=== PATIENT | female | born 1955 | race Caucasian/White ===

== ENCOUNTER 2017-07-18 00:20 | Day surgery (SDC) | payer MEDICARE, MEDICAID ==
[2017-07-15 11:23] LABS: PLATELET COUNT, AUTOMATED 263 K/uL (150-450)
--- NOTE | 2017-07-15 12:00 | RADIOLOGY IMAGING REPORT ---
FACILITY: [facility] - [place] PATIENT NAME: Bozena Lowe : 1955 MR: [id number] V: [id number] EXAM DATE: ORDERING PHYSICIAN: MELISSA PEREZ TECHNOLOGIST: Location: [facility] [place] Patient: Bozena Lowe : 1955 Visit/Account:[id number] Date of Sevice: 07/15/2017 Exam type: CHEST PA AND LAT History: Preop Comparison: November 15, 2015. Findings: There is no evidence of focal infiltrates, pleural effusions or pulmonary edema. The cardiac silhoue tte is normal in size. There is a right paratracheal soft tissue fullness similar to the prior study which is likely related to patient's known coarctation of the aorta. There are moderate spondylotic changes of the thoracic spine IMPRESSION: 1. No evidence of acute pulmonary consolidation Paratracheal soft tissue fullness is likely related to patient's known coarctation of aorta and appea rs similar to the prior chest Report Dictated By: Modesta Rojas MD at 07/15/2017 11:53 AM Report E-Signed By: Modesta Rojas MD at 07/15/2017 11:57 AM WSN:[email or web address]
--- NOTE | 2017-07-15 12:49 | EKG ---
[place] [facility] [place] SIMON CROWDER : [id number] MR: [id number] V: [id number] EXAM DATE: ORDERING PHYSICIAN: MELISSA PEREZ TECHNOLOGIST: Sam Cao Reason : Blood Pressure : / mmHG Vent. Rate : 070 BPM Atrial Rate : 070 BPM P-R Int : 170 ms QRS Dur : 106 ms QT Int : 446 ms P-R-T Axes : 064 -31 050 degrees QTc Int : 481 ms Normal sinus rhythm with sinus arrhythmia Left axis deviation Incomplete right bundle branch block Septal infarct , age undetermined Abnormal ECG When compared with ECG of 11-DEC-2016 14:38, Incomplete right bundle branch block is now present Septal infarct is now present Confirmed by RENATO PORTER ([id number]) on 07/15/2017 2:58:14 PM Referred By: Confirmed By:RENATO PORTER
--- NOTE | 2017-07-17 18:20 | HISTORY AND PHYSICAL ---
DATE OF ADMISSION: July 18, 2017 CHIEF COMPLAINT Hematuria. HISTORY OF PRESENT ILLNESS Patient is a 62-year-old white female with history of mental retardation and seizure disorder who is an [facility] client who has been followed in the Urology Clinic for many years for urinary incontinence with occasional urinary tract infections. This past year she was noted to have increasing microscopic hematuria and a CT scan was performed for evaluation. In October of 2015, a scan was read as having a questionable left mid pole angiomyolipoma. 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 There was no blood flow in this area or significant change in size. She was taken to the operating room on January 31, 2017, at which time she underwent anesthetic cystoscopy with hydrodilation of her bladder as well as a left retrograde pyelogram. The pyelogram showed a normal left system except for a left mid pole caliceal diverticulum with delayed drainage. She did well immediately afterwards, however, two to three months later she experienced episodes of gross painless hematuria. Her urinalysis showed too numerous to count red blood cells. Urine culture showed some Staphylococcus epidermidis and she was treated with Macrodantin for this. She is now being brought to the operating room for planned right retrograde pyelogram, examination under anesthesia with possible left ureteroscopy to further evaluate her upper tracts. PAST MEDICAL HISTORY * Mental retardation. * Urinary incontinence. * Seizure disorder. * Sleep apnea. * Hematuria. PAST SURGICAL HISTORY * Cystoscopy with urethral dilation in 1984. * Colonoscopy with EGD in 2015. * Cystoscopy with left retrograde pyelogram on January 31, 2017. ALLERGIES No known drug allergies. CURRENT MEDICATIONS Please see medication list. SOCIAL HISTORY Patient lives at the [facility] facility. REVIEW OF SYSTEMS Patient denies chest pain, productive cough, fevers, chills, nausea, vomiting, change in weight, bleeding disorder or liver disease. PHYSICAL EXAMINATION GENERAL: Patient is a well-developed, well-nourished white female in no acute distress. HEENT: Reveals poor dentition. CHEST: Clear to auscultation. CARDIOVASCULAR: Regular rate and rhythm without murmurs. ABDOMEN: Soft, nontender. No masses are palpated. GENITOURINARY: Exam is deferred to the OR. EXTREMITIES: Exam without clubbing, cyanosis or edema. NEUROLOGIC: Exam is nonfocal. [*] IMPRESSION A 62-year-old white female with developmental delay and seizure disorder, noted to have an episode of gross hematuria. 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 PLAN We will perform anesthetic cystoscopy, right retrograde pyelogram with possible left ureteroscopy. MTDD
[~2017-07-18] VITALS: Ht 160 cm; Wt 71.7 kg
[~2017-07-18 00:20] MED LIST: ACET-2043 PO; AMOX-362 PO; BEPO10DR3 OU; BETA1TAB44 PO; CA C1TAB95 PO; CALC-1198 PO; CALC1TAB24 PO; CARB25DR2 OP; CARB25DR2 OU; CETI-260 PO; CHLO473M14 MM; CHLOROPHYLL PO; CHOL200021 PO; CITA-141 PO; DIA5 PO; DOCU-416 PO; FOLI-94 PO; GUAI-244 PO; IBUP-56 PO; LACT-214 PO; LOPE-84 PO; LORA-630 PO; LORA-941 PO; LORA10CA3 PO; MELA5TAB6 PO; MINE3.5O20 OU; NAPR220C11 PO; NEOM1PAC11 TP; OMEG-11 PO; OMEG-23 PO; OMEG1CAP35 PO; OXY5 PO; OXYB5TAB86 PO; OXYGENHOME INH; SULF-198 PO; THYM1TAB PO; VIT1CAPS34 PO; [UNRECOGNIZED DRUG - CODE] OP; [UNRECOGNIZED DRUG - CODE] PO; [UNRECOGNIZED DRUG - OTHER] PO; [UNRECOGNIZED DRUG - OTHER] PO
[2017-07-18] MEDS ORDERED: LIDOCAINE/SOD BICARB 8.4% SYR ID ONE (06:45)
[2017-07-18] MEDS ORDERED: ceFAZolin(*) 1 GM VIAL 1 GM in NS(*) 0.9% 100 ML ADDVANT BAG 100 ML IVPB ONE (06:45)
[2017-07-18] MEDS ORDERED: NORMOSOL R SOLN(*) 1000 ML BAG 1,000 ML IV PRN (06:45)
[2017-07-18] MEDS ORDERED: FAMOTIDINE 20 MG TAB PO ONE (06:45)
[2017-07-18] MEDS ORDERED: MIDAZOLAM 2 MG/2 ML VIAL IVP ONE (06:45)
[2017-07-18 06:57] VITALS: BP 127/68
[2017-07-18] MEDS ORDERED: PROPOFOL EMUL(*) 10MG/ML 20 ML 20 ML ONE (07:38)
[2017-07-18] MEDS ORDERED: LIDOCAINE MPF 1% 5 ML VIAL ONE (07:38)
[2017-07-18] MEDS ORDERED: IOPAMIDOL-200 50 ML VIAL IS ONE (07:47)
[2017-07-18] MEDS ORDERED: DEXAMETHASONE SOD PHOS 10MG/ML ONE (07:50)
[2017-07-18] MEDS ORDERED: ONDANSETRON 4 MG/2 ML VIAL ONE (07:50)
[2017-07-18] MEDS ORDERED: fentaNYL CITR 100 MCG/2 ML AMP ONE (08:10)
[2017-07-18] MEDS ORDERED: BELLADONNA ALK/OPIUM 60MG SUPP PR ONE (08:25)
[2017-07-18] MEDS ORDERED: HYDROCORTISONE 1% CR 28.35 GM TP ONE (08:25)
[2017-07-18] MEDS ORDERED: NS 0.9% 3000 ML IRRIGATION BAG IR ONE (08:36)
[2017-07-18] MEDS ORDERED: PHEN200T32 PO (09:50)
[2017-07-18 09:52] VITALS: BP 125/77
--- NOTE | 2017-07-18 10:11 | PIERCE CYSTOSCOPY ---
EVENT DATE: July 18, 2017 SURGEON: Tony Lew MD ANESTHESIOLOGIST: Len Montelongo MD ANESTHESIA: General PREOPERATIVE DIAGNOSIS Gross hematuria with left renal calculi and left medial mid pole caliceal diverticulum. POSTOPERATIVE DIAGNOSIS Gross hematuria with left renal calculi and left medial mid pole caliceal diverticulum. PROCEDURES PERFORMED 1. Anesthetic cystoscopy. 2. Right retrograde pyelogram. 3. Left retrograde pyelogram. 4. Left flexible renoureteroscopy. 5. Left internal double J ureteral stent placement. ESTIMATED BLOOD LOSS 10 mL. IV FLUIDS Crystalloids. DRAINS 24 x 6 Trinidadian Contour Microvasive stent on left. PATHOLOGY None. COMPLICATIONS None. CONDITION The patient was taken to recovery room awake and in stable condition. STATEMENT OF MEDICAL NECESSITY The patient is a 62-year-old white female with history of developmental delay and seizure disorder who is a client of the [facility] who has been followed in the urology clinic for many years with urge incontinence and urinary tract infections. She was first noted to have an abnormal area on a CAT scan approximately a year and a half ago, which was read as a small possible angiomyolipoma. A followup x-ray this past summer revealed the size of this to be stable, however, IV contrast was given, and this was proven to be a calyceal diverticulum with an area of stones in the dependent portion. The area of the stones measured approximately 10 x 4 mm in size. The patient was noted to have microscopic hematuria this past summer and was taken to the operating room in January. At that time, her anesthetic cystoscopy was normal. A left retrograde pyelogram was performed, which showed this calyceal diverticulum in the left mid pole to fill, but had delayed drainage on the x-ray. Her bladder exam was normal. Since that time, the patient has experienced 2-3 episodes of gross painless hematuria with questionable having an infection at the same time. She is now being returned to the operating room for planned right retrograde pyelogram with consideration of left ureteroscopy to further evaluate this midpole left calyceal diverticulum. DESCRIPTION OF OPERATION PERFORMED The patient was brought to the operating room. After general anesthetic was obtained, she was placed in the dorsal lithotomy position and prepped and draped in the usual sterile manner. Anesthetic cystoscopy was performed with the 21 Trinidadian Lofton sheath with both 30 and 70 degree lenses. She had a normal- appearing urethra without evidence of stricture or bladder neck inflammatory polyps. Her mucosa was normal. Her ureteral orifices were slit-like in appearance, both effluxing clear urine. She had mild lateral cystocele defects , otherwise a normal. A right retrograde pyelogram was performed using an 8 Trinidadian cone tip catheter and injecting 7 mL of contrast material in a retrograde manner. Both filling and drain films were obtained. By my intraoperative interpretation, this retrograde pyelogram was normal without evidence of filling defects or other anomalies. She had prompt drainage on the right side. Following this, the left retrograde pyelogram was performed in a similar manner. Again the ureteral opacification was normal, as well as her calyceal anatomy. She did have this previously noted calyceal diverticulum, which filled in the medial aspect of the mid pole kidney with again delayed drainage. It was difficult to ascertain where her calcifications were on this plain film x-ray. The interpretation was left mid pole calyceal diverticulum, otherwise normal. At this point, I performed left flexible ureteroscopy. A 0.035 double floppy tip wire was advanced to the upper pole calyx. This wire was used to place an 8-10 dilating system, and then a second wire was placed alongside the first wire. The dilating system was removed. One wire was secured to the drapes as a safety wire. The next wire was back loaded through the flexible ureteroscope. The scope was advanced up over the wire under direct vision with fluoroscope imaging aiding orientation and was advanced to the upper pole. The working wire was then removed, and flexible renoscopy was then performed. There was a blood clot in the upper to mid pole area which appeared to be from recent ureteral dilation and wire placement. I sequentially examined each upper, mid and lower pole calyceal system. There were no stones identified, and they appeared normal. After a thorough search and examination, I could not locate the infundibulum or ostium to calyceal diverticulum. Therefore, a retrograde pyelogram was performed through the scope. Again this filled. However, after several minutes of inspection, this area could still not be identified. It was unclear whether the blood clot was obscuring this area, but it appeared I had excellent visualization throughout the kidney and was confirming each calyceal position with fluoroscopic imaging. At approximately 30 minutes of searching, I could not identify the ostium. The remainder of the kidney appeared normal. At this point, pull out ureteroscopy was performed. She had no evidence of ureteral injury or other anomaly along the course of the ureter. The wire was then back loaded into the cystoscope, and this was used to place a 6 Trinidadian x 24 cm Contour stent. The wire was removed. She was noted to have good curling in the renal pelvis by fluoroscopy and good curling in the bladder by direction. The patient's bladder was drained through the cystoscopic sheath. A B&O suppository was given per rectally at the conclusion of the case. She was awakened in the operating room and taken to the recovery area in stable condition. The plan will be to allow the patient to be discharged home today on Pyridium. She is to continue her naproxen and Tylenol as needed as well as her Ditropan 5 mg three times a day. We will have her return to the operating room in two to four weeks for anesthetic cystoscopy with removal of stent and possible followup ureteroscopy. HIMANSHU
[2017-07-18 10:17] VITALS: BP 159/89
[2017-07-18] MEDS ORDERED: PHENAZOPYRIDINE 200 MG TAB ONE (10:19)
[2017-07-18 10:20] VITALS: BP 161/103
--- NOTE | 2017-07-18 10:45 | RADIOLOGY IMAGING REPORT ---
FACILITY: [facility] [place] PATIENT NAME: Bozena Lowe : 1955 MR: [id number] V: [id number] EXAM DATE: ORDERING PHYSICIAN: MELISSA PEREZ TECHNOLOGIST: Location: [facility] [place] Patient: Bozena Lowe : 1955 Visit/Account:[id number] Date of Sevice: 07/18/2017 Exam type: RETROGRADE PYELOGRAM History: HEMATURIA Comparison: January 31, 2017 Findings: The fluoroscopy time was one minute and 53 seconds. The fluoroscopy dose was 66.5 mGray.. 277 fluo roscopic spot images were submitted. Contrast is seen in the renal collecting systems and ureters bi laterally. There is a small amount of calyceal extravasation from the upper pole of the left kidney. . On the final images a left ureteral stent was placed. IMPRESSION: 1. As above Report Dictated By: Modesta Rojas MD at 07/18/2017 10:05 AM Report E-Signed By: Modesta Rojas MD at 07/18/2017 10:41 AM WSN:[email or web address]
== END 2017-07-18 09:52 | disposition home or self-care (01) ==
LOC: OR 00:20
PROVIDERS: ATTEND Urology
DX: N20.0 Calculus of kidney (principal); R33.9 Retention of urine, unspecified; F79 Unspecified intellectual disabilities; G40.909 Epilepsy, unspecified, not intractable, without status epilepticus; G47.30 Sleep apnea, unspecified
CPT/HCPCS: 52005; 52332; 71046; 74420; 81001; 85025; 87088; 93005; A9270; J0690; J1100; J2001; J2250; J2405; J2704; J3010; J7050; Q9966; 82310; 82374; 82435; 82565; 82947; 84132; 84295; 84520; C1758; C1894; C2617

== ENCOUNTER → 2017-08-01 | Outpatient (CLI) | payer MEDICARE, MEDICAID ==
[~2017-08-01] MED LIST changes: +PHEN200T32 PO
== END ==
LOC: LAB 14:30
PROVIDERS: ATTEND Nurse Practitioner
DX: D22.21 Melanocytic nevi of right ear and external auricular canal (principal)
CPT/HCPCS: 88305

== ENCOUNTER 2017-08-15 00:20 | Day surgery (SDC) | payer MEDICARE, MEDICAID ==
--- NOTE | 2017-08-14 15:46 | HISTORY AND PHYSICAL ---
DATE OF ADMISSION: August 15, 2017 CHIEF COMPLAINT History of hematuria with left calyceal diverticulum with a stone. HISTORY OF PRESENT ILLNESS The patient is a 62-year-old white female with history of developmental delay and seizure disorder who has been followed in the Urology Clinic for several years for urinary tract infections and urge incontinence. A CT scan was performed approximately a year and a half ago which reveals possible small angiolipoma on the left side. A followup x-ray performed with IV contrast revealed this to be a probable calyceal diverticulum in the right mid pole with an area of layering stones measuring approximately 10 x 4 mm in size. The patient was recently brought to the operating room approximately four weeks ago , at which time she had anesthetic cystoscopy, bilateral retrograde pyelograms, and left flexible renoureteroscopy. During this on the left side, I could not identify an opening to this calyceal diverticulum or other anomaly during flexible exam. However, the diverticulum was filled during a retrograde pyelogram. She was left with a left Microvasive 6 x 24 stent. She is now being brought to the operating room for anesthetic cystoscopy with stent removal and possible followup ureteroscopy. PAST MEDICAL HISTORY 1. Mental retardation with developmental delay. 2. Urinary incontinence. 3. Seizure disorder. 4. Sleep apnea. 5. Hematuria. PAST SURGICAL HISTORY 1. Cystoscopy with ureteral dilation 1984. 2. Colonoscopy with EGD 2015. 3. Cystoscopy with left retrograde pyelogram January 2017. 4. Left ureteroscopy with stent placement July 18, 2017. ALLERGIES No known drug allergies. MEDICATIONS Please see her current list in the medical record. SOCIAL HISTORY The patient lives at the [facility] facility. REVIEW OF SYSTEMS The patient's staff deny chest pain, shortness of breath, productive cough, fever, chills, nausea, vomiting, bleeding disorder, or change of bowel habits. PHYSICAL EXAMINATION GENERAL: The patient is a well-developed, well-nourished, white female in no acute distress. HEENT: Normocephalic except for poor dentition. CHEST: Clear to auscultation bilaterally. CARDIOVASCULAR: Regular rate and rhythm without murmurs. ABDOMEN: Soft, nontender. No masses are palpated. GENITOURINARY: Deferred to the OR. EXTREMITIES: Without clubbing, cyanosis, or edema. NEUROLOGIC: Nonfocal. IMPRESSION A 62-year-old white female with developmental delay and seizure disorder with urinary tract infections and recent episode of hematuria who was found to have a left medial mid pole calyceal diverticulum with stones. Ureteroscopy one month ago failed to reveal any evidence of ostium entering this area after extensive search. She currently has a left indwelling stent. PLAN We will plan anesthetic cystoscopy and removal of left stent with possible ureteroscopy. HIMANSHU
[~2017-08-15] VITALS: Ht 160 cm; Wt 73.0 kg
[2017-08-15] MEDS ORDERED: LIDOCAINE/SOD BICARB 8.4% SYR ID ONE (06:45)
[2017-08-15] MEDS ORDERED: MIDAZOLAM 2 MG/2 ML VIAL IVP PRN (06:45)
[2017-08-15] MEDS ORDERED: ceFAZolin(*) 1 GM VIAL 1 GM in NS(*) 0.9% 100 ML ADDVANT BAG 100 ML IVPB ONE (06:45)
[2017-08-15] MEDS ORDERED: FAMOTIDINE 20 MG TAB PO ONE (06:45)
[2017-08-15] MEDS ORDERED: NORMOSOL R SOLN(*) 1000 ML BAG 1,000 ML IV PRN (06:45)
[2017-08-15 06:58] VITALS: BP 118/70
[2017-08-15] MEDS ORDERED: IOPAMIDOL-200 50 ML VIAL IS ONE (07:11)
[2017-08-15] MEDS ORDERED: PROPOFOL EMUL(*) 10MG/ML 20 ML 20 ML ONE (07:23)
[2017-08-15] MEDS ORDERED: fentaNYL CITR 100 MCG/2 ML AMP ONE (07:23)
[2017-08-15] MEDS ORDERED: DEXAMETHASONE SOD 4 MG/ML VIAL ONE (07:23)
[2017-08-15] MEDS ORDERED: ONDANSETRON 4 MG/2 ML VIAL ONE (07:23)
[2017-08-15] MEDS ORDERED: LIDOCAINE MPF 1% 5 ML VIAL ONE (07:23)
[2017-08-15] MEDS ORDERED: KETAMINE HCL 200 MG/20 ML MDV ONE (08:00)
--- NOTE | 2017-08-15 08:28 | RADIOLOGY IMAGING REPORT ---
FACILITY: [facility] PATIENT NAME: Bozena Lowe : 1955 MR: [id number] V: [id number] EXAM DATE: ORDERING PHYSICIAN: MELISSA PEREZ TECHNOLOGIST: Location: [facility] [place] Patient: Bozena Lowe : 1955 Visit/Account:[id number] Date of Sevice: 08/15/2017 XR ABDOMEN 1 VIEW Indication: Kidney stones, stent removal. Comparison: Retrograde ureterogram 07/18/2017 Findings: There is a left-sided double-J stent, which appears in good position. There is no evidence of calculus projecting over the right or left renal silhouette. Normal bowel gas pattern is seen. There are calcifications projecting in the pelvis, likely representing phleboliths, unchanged. IMPRESSION: 1. Left-sided double-J stent which appears in good position. 2. No evidence of right or left kidney calculus. Report Dictated By: Roderick Rosales at 08/15/2017 8:21 AM Report E-Signed By: Roderick Rosales at 08/15/2017 8:24 AM WSN:[email or web address]
[2017-08-15 08:40] VITALS: BP 131/73
[2017-08-15 08:57] VITALS: BP 150/84
[2017-08-15 08:58] VITALS: BP 135/81
--- NOTE | 2017-08-15 16:53 | OPERATIVE REPORT 1 ---
EVENT DATE: August 15, 2017 SURGEON: Tony Lew MD ANESTHESIOLOGIST: Jp Argueta MD ANESTHESIA: General anesthetic. PREOPERATIVE DIAGNOSIS Left indwelling ureteral stent. POSTOPERATIVE DIAGNOSIS Left indwelling ureteral stent. PROCEDURES PERFORMED 1. Cystoscopy. 2. Grasping and removal of left double-J stent. ESTIMATED BLOOD LOSS Minimal. INTRAVENOUS FLUIDS Crystalloid. DRAINS None. COMPLICATIONS None. CONDITION The patient was taken to the recovery room awake and in stable condition. STATEMENT OF MEDICAL NECESSITY The patient is a 62-year-old white female with a history of developmental delay and seizure disorder, who has been involved in the Urology Clinic for UTIs and urge incontinence. She was recently noted to have a probable calyceal diverticulum with an internal calcification measuring 10 x 4 mm in size. She recently underwent left ureteroscopy and was left with an indwelling stent. She is now being brought to the operating room for stent removal. DESCRIPTION OF PROCEDURE PERFORMED The patient was brought to the operating room. After general anesthetic was obtained, she was placed in the dorsal lithotomy position and prepped and draped in the usual sterile manner. Anesthetic cystoscopy was performed with a 21-Afghan rigid Lofton sheath and 30-degree lens. She had normal-appearing urethral and bladder mucosa. The stain was seen emanating from the left ureteral orifice. There were no encrustations or other abnormalities noted. It was grasped on its distal end and gently removed intact. The scope sheath was then reintroduced, and the patient's bladder was drained through the scope sheath. At the conclusion of the case, the patient was awakened in the operating room and taken to the recovery area in stable condition. PLAN The plan will be to allow the patient to be discharged home. We will see her in the Urology Clinic in two to three months to check a urinalysis and symptoms. HIMANSHU
== END 2017-08-15 08:40 | disposition home or self-care (01) ==
LOC: OR 00:20
PROVIDERS: ATTEND Urology
DX: Z46.6 Encounter for fitting and adjustment of urinary device (principal); R32 Unspecified urinary incontinence
CPT/HCPCS: 52310; 74018; 81001; 87088; A9270; C1758; J0690; J1100; J2001; J2405; J2704; J3010; J3490; J7050; Q9966

== ENCOUNTER → 2017-10-23 | Outpatient (CLI) | payer MEDICARE, MEDICAID ==
--- NOTE | 2017-10-23 10:04 | RADIOLOGY IMAGING REPORT ---
FACILITY: [facility] PATIENT NAME: Bozena Lowe : 1955 MR: [id number] V: [id number] EXAM DATE: ORDERING PHYSICIAN: MELISSA PEREZ TECHNOLOGIST: Location: [facility] [place] Patient: Bozena Lowe : 1955 Visit/Account:[id number] Date of Sevice: 10/23/2017 KIDNEYS EXAMINATION: Renal ultrasound. History: History of left kidney stones COMPARISON STUDIES: January 31, 2017 FINDINGS: Kidneys: Right kidney- 11.8 x 4.3 x 4.8 cm Left kidney- 9 x 4.4 x 4.6 cm Uniform and symmetric blood flow in each kidney by Doppler ultrasound. Hydronephrosis: none Resistive index on the right 0.47 and on the left 0.46. There is a 3 mm small nonshadowing echogenic focus within the midpole the right kidney. The left kid gomez has a slightly lobular contour. There is a 1.1 cm echogenic focus within the left renal pelvis Bladder: Urinary bladder prevoid volume was 111 mL. Postvoid residual was 20 mL. Bilateral ureteral jets are present. Abdominal aorta and IVC: Aorta and IVC are patent by Doppler ultrasound. IMPRESSION: There is a 3 mm nonshadowing echogenic focus in the mid pole of the right kidney There is a 1.1 cm echogenic focus within the left renal pelvis. No evidence of hydronephrosis Report Dictated By: Modesta Rojas MD at 10/23/2017 9:56 AM Report E-Signed By: Modesta Rojas MD at 10/23/2017 10:00 AM WSN:[email or web address]
== END ==
LOC: US 01:08
PROVIDERS: ATTEND Urology
DX: Z87.442 Personal history of urinary calculi (principal)
CPT/HCPCS: 76705

== ENCOUNTER → 2017-11-12 | Outpatient (CLI) | payer MEDICARE, MEDICAID ==
--- NOTE | 2017-11-13 08:13 | RADIOLOGY IMAGING REPORT ---
FACILITY: [facility] [place] PATIENT NAME: SIMON CROWDER : [id number] MR: [id number] V: [id number] EXAM DATE: [id number] ORDERING PHYSICIAN: JORDYN WHITAKER TECHNOLOGIST: Sara Parnell PROCEDURE:BILATERAL DIGITAL SCREENING MAMMOGRAM WITH CAD ASSISTED INTERPRETATION COMPARISON:Prior mammograms 11/06/16, 10/06/15, 09/29/14, 09/23/13, 09/22/12, 08/30/11. INDICATIONS:screening FINDINGS: Moderately heterogeneous fibroglandular tissue is seen throughout the breasts. The parenchymal pattern has remained stable allowing for difference in mammographic technique & patient positioning. There is no evidence of malignant appearing mass, malignant appearing calcifications or other secondary sign of malignancy in either breast. DIAGNOSTIC CATEGORY 2--BENIGN FINDING. RECOMMENDATIONS: ROUTINE MAMMOGRAM AND CLINICAL EVALUATION. IMPRESSION: BIRADS 2: Benign finding No significant abnormality is seen. Dictated by: Modesta Rojas M.D. on 11/12/2017 at 15:39 Transcribed by: NAYELI on 11/12/2017 at 15:49 Approved by: Modesta Rojas M.D. on 11/13/2017 at 8:12 [facility]
== END ==
LOC: MAMO 11-07 01:36
PROVIDERS: ATTEND Nurse Practitioner Family
DX: Z12.31 Encounter for screening mammogram for malignant neoplasm of breast (principal)
CPT/HCPCS: 77063; 77067

== ENCOUNTER → 2018-03-18 | Outpatient (REF) | payer MEDICARE, MEDICAID | LOC: ZZSENDIN 16:21 | PROVIDERS: ATTEND Urology | DX: N39.0 Urinary tract infection, site not specified (principal); B96.89 Other specified bacterial agents as the cause of diseases classified elsewhere | CPT/HCPCS: 87077; 87088 ==

== ENCOUNTER → 2018-07-18 | Outpatient (CLI) | payer MEDICARE, MEDICAID ==
[~2018-07-18] MED LIST changes: +IOPAMIDOL 76% 100 ML INFUS BTL 100 ML ONE
--- NOTE | 2018-07-18 13:49 | RADIOLOGY IMAGING REPORT ---
FACILITY: [facility] PATIENT NAME: Bozena Lowe : 1955 MR: [id number] V: [id number] EXAM DATE: ORDERING PHYSICIAN: [facility] TECHNOLOGIST: Location: [facility] Patient: Bozena Lowe : 1955 Visit/Account:[id number] Date of Sevice: 07/18/2018 CT neck with contrast Comparison: CT neck dated September 11, 2015. Additional pertinent history: Swelling below the jaw. TECHNIQUE: Multiple axial images were obtained from the mid portion of the brain through the superio r mediastinum with IV contrast. Coronal and sagittal reformatted images were obtained off the axial source data. One of the following dose optimization techniques was utilized in the performance of t his exam: Automated exposure control; adjustment of the mA and/or kV according to the patient's size; or use of an iterative reconstruction technique. Specific details can be referenced in the [facility] radiology CT exam operational policy. CONTRAST: 75 mL of Isovue-370 FINDINGS: Visualized portions of the brain parenchyma:Negative Parotid glands/submandibular glands/thyroid: Focal calcifications within the left submandibular glan d compatible with sialoliths. Otherwise negative. Orbits: Negative Paranasal sinuses: Negative Parapharyngeal spaces: Negative Nasopharynx/oropharynx/hypopharynx: Negative Tonsillar pillars: Negative Oral tongue/tongue base: Negative True and false cords: Negative Lymph node assessment:Negative Surrounding soft tissues: Negative, specifically no evidence of fluid collection or soft tissue stra nding inferior to the mandible. Vasculature: Negative Lung apices: Negative Osseous structures: Mild spondylitic change involving the cervical spine. IMPRESSION: 1. No acute process involving the neck. 2. Findings most consistent with underlying sialoliths involving the left submandibular gland. Report Dictated By: Rey Hu MD at 07/18/2018 1:38 PM Report E-Signed By: Rey Hu MD at 07/18/2018 1:43 PM WSN:[email or web address]
== END ==
LOC: CT 01:50
PROVIDERS: ATTEND Dentist
DX: K11.5 Sialolithiasis (principal)
CPT/HCPCS: 36415; 70491; 82565; Q9967

== ENCOUNTER → 2018-07-30 | Outpatient (CLI) | payer MEDICARE, MEDICAID ==
[~2018-07-30] MED LIST changes: -IOPAMIDOL 76% 100 ML INFUS BTL 100 ML ONE
== END ==
LOC: RESP 20:56
PROVIDERS: ATTEND Nurse Practitioner Family
DX: G47.33 Obstructive sleep apnea (adult) (pediatric) (principal); G47.36 Sleep related hypoventilation in conditions classified elsewhere; G47.61 Periodic limb movement disorder

== ENCOUNTER → 2018-09-04 | Outpatient (CLI) | payer MEDICARE, MEDICAID ==
[~2018-09-04] MED LIST changes: -NAPR220C11 PO; +NAPR220C62 PO
== END ==
LOC: US 00:44
PROVIDERS: ATTEND Nurse Practitioner Family
DX: I35.1 Nonrheumatic aortic (valve) insufficiency (principal); I50.30 Unspecified diastolic (congestive) heart failure
CPT/HCPCS: 93306

== ENCOUNTER → 2018-09-23 | Outpatient (REF) | payer MEDICARE, MEDICAID | LOC: ZZSENDIN 16:54 | PROVIDERS: ATTEND Urology | DX: N39.0 Urinary tract infection, site not specified (principal); N39.41 Urge incontinence | CPT/HCPCS: 81001; 87088 ==

== ENCOUNTER → 2018-10-24 | Outpatient (CLI) | payer MEDICARE, MEDICAID | LOC: LAB 12:56 | PROVIDERS: ATTEND Nurse Practitioner Family | DX: B37.3 Candidiasis of vulva and vagina (principal); B96.20 Unspecified Escherichia coli [E. coli] as the cause of diseases classified elsewhere | CPT/HCPCS: 81001; 87077; 87088; 87186 ==

== ENCOUNTER → 2018-10-29 | Outpatient (CLI) | payer MEDICARE, MEDICAID ==
--- NOTE | 2018-10-29 11:43 | RADIOLOGY IMAGING REPORT ---
FACILITY: [facility] - [place] PATIENT NAME: Bozena Lowe : 1955 MR: [id number] V: [id number] EXAM DATE: ORDERING PHYSICIAN: JORDYN WHITAKER TECHNOLOGIST: Location: [facility] [place] Patient: Bozena Lowe : 1955 Visit/Account:[id number] Date of Sevice: 10/29/2018 DEXA Scan Clinical history: Screening. Comparison: DEXA scan from 11/15/2016. LUMBAR SPINE: The bone mineral density (BMD) measured from L1-L4 correlates with a Z-score of 1 and a T-score of -0 .2 which is Normal as defined by the World Health Organization. The corresponding risk of fracture i n the lumbar spine is Not increased compared with a young adult reference population. This value has decreased by 4.1 % since the prior study. More than 5% change is considered significant. HIP: Bone mineral density (BMD) measured in the LEFT total hip region correlates with a Z-score 1.2 and a T-score of 0.2 which is normal as defined by the World Health Organization. The corresponding risk of fracture in the hip is Not i ncreased compared to a young adult reference population. This value has decrease by 3.3 % since the p rior study. More than 5% change is considered significant. T score left femoral neck -0.3 Bone mineral density (BMD) measured in the Femoral Neck region measures 0.996 g/cm?. IMPRESSION: 1. Lumbar spine: Normal. There has been 4.1% decrease in the bone mineral density since the previou s exam. 2. Left Total Hip: Normal. There has been 3.3% decrease in the bone mineral density since the previ ous exam. 3. Femoral Neck: Bone Mineral Density is 0.996 g/cm? The next DEXA scan of this patient should include the following sites: L1-L4 and the left hip. FRAX? WHO Fracture Risk Assessment Tool link: <http://www.shef.ac.uk/FRAX/tool.jsp?locationValue=9> PLEASE NOTE: 1) The World Health Organization defines low BMD as follows: T-score Normal > -1 Osteopenia < -1 and > -2.5 Osteoporosis < -2.5 without fractures Established osteoporosis < -2.5 with fractures 2) In general, you may wish to consider: Diagnosis Treatment Follow-up DEXA Normal BMD Prevention 2-3 years Osteopenia Prevention/therapy 1-2 years Osteoporosis Therapy Yearly 3) Fracture risk estimated from the T-score is more accurate for vertebral fractures (often spontane ous) than for hip fractures. Report Dictated By: Modesta Rojas MD at 10/29/2018 11:08 AM Report E-Signed By: Modesta Rojas MD at 10/29/2018 11:38 AM WSN:[id number]
== END ==
LOC: RAD 10-17 02:19
PROVIDERS: ATTEND Nurse Practitioner Family
DX: Z78.0 Asymptomatic menopausal state (principal)
CPT/HCPCS: 77080

== ENCOUNTER → 2019-01-29 | Outpatient (CLI) | payer MEDICARE, MEDICAID ==
[~2019-01-29] MED LIST changes: +MELA5TAB3 PO; -MELA5TAB6 PO
--- NOTE | 2019-01-30 09:32 | RADIOLOGY IMAGING REPORT ---
FACILITY: [facility] - [place] PATIENT NAME: SIMON CROWDER : [id number] MR: [id number] V: [id number] EXAM DATE: ORDERING PHYSICIAN: JORDYN WHITAKER TECHNOLOGIST: Veronica Long PROCEDURE: BILATERAL DIGITAL SCREENING MAMMOGRAM WITH CAD ASSISTED INTERPRETATION. REASON FOR STUDY: Screening. FAMILY HISTORY OF BREAST CANCER: Unknown. BREAST PROCEDURES/TREATMENTS: None Reported. COMPARISON: 11/12/17, 10/06/15, 09/29/14, 09/23/13, 09/22/12. VIEWS OBTAINED: Bilateral 2D & 3D full field CC & MLO projections. BREAST DENSITY: The breasts are heterogeneously dense which can obscure small masses. MAMMOGRAM FINDINGS: The parenchymal pattern has remained stable allowing for difference in mammographic technique & patient positioning. IMPRESSION: BIRADS 1: Negative. DIAGNOSTIC CATEGORY 1--NEGATIVE. RECOMMENDATIONS: ROUTINE MAMMOGRAM AND CLINICAL EVALUATION. Dictated by: Modesta Rojas M.D. on 01/29/2019 at 16:47 Transcribed by: NAYELI on 01/30/2019 at 8:17 Approved by: Modesta Rojas M.D. on 01/30/2019 at 9:27 [facility]
== END ==
LOC: MAMO 00:49
PROVIDERS: ATTEND Nurse Practitioner Family
DX: Z12.31 Encounter for screening mammogram for malignant neoplasm of breast (principal)
CPT/HCPCS: 77063; 77067